=== PATIENT | female | born 1950 | race Caucasian/White ===

== ENCOUNTER 2019-06-13 06:41 | Inpatient (IN) ==
--- NOTE | 2019-05-23 16:19 | PAT Medication Instructions ---
Medication Instructions Date of Service May 23, 2019 Home Medications Cbd Oil 3 - 4 drp PO DAILY PRN aspirin [Aspirin Low Dose] 81 mg PO QPM atorvastatin 20 mg PO PM azelastine-fluticasone [Dymista] 1 spray INTRANASAL Q12H PRN calcium carb and citrate-vitD3 [Citracal + D Slow Release] 1 tab PO QAM celecoxib 200 mg PO QAM cholecalciferol (vitamin D3) [Vitamin D3] 1,000 - 2,000 unit PO QPM cholecalciferol (vitamin D3) [Vitamin D3] 5,000 unit PO QAM cyanocobalamin (vitamin B-12) [Vitamin B-12] 500 mcg PO QAM docusate sodium 100 mg PO DAILY PRN fluocinonide 1 applic TOPICAL DAILY PRN fluticasone furoate-vilanterol [Breo Ellipta] 1 inh INHALATION DAILY lamotrigine 25 mg PO QPM magnesium 250 mg PO QPM montelukast 10 mg PO PM omeprazole 20 mg PO QAM ranitidine HCl 300 mg PO QPM valacyclovir [Valtrex] 1,000 mg PO Q12H PRN ASK your surgeon for instructions celecoxib 200 mg PO QAM STOP taking 24 hours before surgery fluocinonide 1 applic TOPICAL DAILY PRN DO NOT take the morning of surgery calcium carb and citrate-vitD3 [Citracal + D Slow Release] 1 tab PO QAM cholecalciferol (vitamin D3) [Vitamin D3] 5,000 unit PO QAM cyanocobalamin (vitamin B-12) [Vitamin B-12] 500 mcg PO QAM docusate sodium 100 mg PO DAILY PRN Take morning of surgery With a small sip of water, OTHERWISE NOTHING TO EAT OR DRINK AFTER MIDNIGHT: azelastine-fluticasone [Dymista] 1 spray INTRANASAL Q12H PRN (if needed) fluticasone furoate-vilanterol [Breo Ellipta] 1 inh INHALATION DAILY omeprazole 20 mg PO QAM valacyclovir [Valtrex] 1,000 mg PO Q12H PRN (if needed) Take evening before surgery Cbd Oil 3 - 4 drp PO DAILY PRN (if needed) aspirin [Aspirin Low Dose] 81 mg PO QPM atorvastatin 20 mg PO PM azelastine-fluticasone [Dymista] 1 spray INTRANASAL Q12H PRN (if needed) cholecalciferol (vitamin D3) [Vitamin D3] 1,000 - 2,000 unit PO QPM docusate sodium 100 mg PO DAILY PRN (if needed) lamotrigine 25 mg PO QPM magnesium 250 mg PO QPM montelukast 10 mg PO PM ranitidine HCl 300 mg PO QPM valacyclovir [Valtrex] 1,000 mg PO Q12H PRN (if needed) Other Notes If you have any questions please call us at [phone] or [phone] or [phone] or [phone]
--- NOTE | 2019-05-24 11:57 | Anesthesiology Consultation ---
Date of Service May 24, 2019 Assessment & Plan (1) Encounter for pre-operative examination: - Awaiting review preop testing (labs, EKG). - Awaiting surgeon-ordered PCP clearance scheduled 06/06 (Dr. Martin). - Awaiting most recent cardiac testing if available (i.e. ECHO, stress test). Chart Review Chart Review: Patient seen in Pre Admission Testing Teaching & Discussion Pre-Anesthesia Teaching/Discussion Notes: Instructed NPO after midnight before surgery,except medications with 15 cc of water. Medication instructions provided according to the PAT guidelines. History Surgery Operation Date: 06/13/19 13:20 Proposed Procedures p Left Total Hip Arthroplasty - Malick Peterson, Height/Weight Height: 5 ft 3 in Weight: 78.8 kg Allergies Allergy/AdvReac Type Severity Reaction Status Date / Time Penicillins Allergy Intermediate hives Verified 05/17/19 10:16 Medications Home Medications Medication Instructions Recorded Confirmed Last Taken Cbd Oil 3 - 4 drp PO DAILY PRN 05/17/19 Unknown aspirin [Aspirin Low Dose] 81 mg PO QPM 05/17/19 05/17/19 Unknown atorvastatin 20 mg PO PM 05/17/19 05/17/19 Unknown azelastine-fluticasone [Dymista] 1 spray INTRANASAL Q12H PRN 05/17/19 05/17/19 Unknown calcium carb and citrate-vitD3 1 tab PO QAM 05/17/19 05/17/19 Unknown [Citracal + D Slow Release] celecoxib 200 mg PO QAM 05/17/19 05/17/19 Unknown cholecalciferol (vitamin D3) 1,000 - 2,000 unit PO QPM 05/17/19 05/17/19 Unknown [Vitamin D3] cholecalciferol (vitamin D3) 5,000 unit PO QAM 05/17/19 05/17/19 Unknown [Vitamin D3] cyanocobalamin (vitamin B-12) 500 mcg PO QAM 05/17/19 05/17/19 Unknown [Vitamin B-12] docusate sodium 100 mg PO DAILY PRN 05/17/19 05/17/19 Unknown fluocinonide 1 applic TOPICAL DAILY PRN 05/17/19 05/17/19 Unknown fluticasone furoate-vilanterol 1 inh INHALATION DAILY 05/17/19 05/17/19 Unknown [Breo Ellipta] lamotrigine 25 mg PO QPM 05/17/19 05/17/19 Unknown magnesium 250 mg PO QPM 05/17/19 05/17/19 Unknown montelukast 10 mg PO PM 05/17/19 05/17/19 Unknown omeprazole 20 mg PO QAM 05/17/19 05/17/19 Unknown ranitidine HCl 300 mg PO QPM 05/17/19 05/17/19 Unknown valacyclovir [Valtrex] 1,000 mg PO Q12H PRN 05/17/19 05/17/19 Unknown Past Medical History Medical History Asthma stable High cholesterol Hx of cancer of lung s/p LL lobectomy, chemo (2016) Hx of skin cancer, basal cell facial Osteoarthritis Psoriasis Psoriatic arthritis Sleep apnea CPAP Exercise / Class Metabolic Activity III < 4 Walking/Shop/Light housework (uses cane PRN) Past Surgical History Surgical History History of back surgery History of esophagogastroduodenoscopy (EGD) History of lobectomy of lung LEFT LOWER LOBE History of total right hip replacement Hx of blepharoplasty Hx of colonoscopy Hx of foot surgery LEFT AND RIGHT BUNIONS Hx of hand surgery FINGER Hx of total hysterectomy Past Anesthesia History No Hx of Anesthesia Complications and No Family Hx of Anesthesia Complications History of PONV No Hx of PONV and Hx of Motion Sickness (remote hx) Social History Smoking Status: Never smoker Do You Dip or Chew Tobacco: No Hx Alcohol Use: Yes Alcohol type: beer alcohol intake frequency: holidays/special occasions only Hx Substance Use: Yes Substance Use Type Other:: CBD OIL - DAILY BASIS Review of Systems Patient denies chest pain, shortness of breath, cough, wheezing, palpitations. Physical Exam Vital Signs VITALS BP 142/79 P 65 TEMP 97.7 SP02 99%RA RESP 16 PHYSICAL Full neck and c-spine range of motion. Full TMJ range of motion. TMD 3 finger breaths Mallampati Score 2 Dentition: wisdom tooth cap "broken" (plan for dental work 05/30)- surgeon aware Lungs: clear throughout to auscultation Cardiac: regular rate and rhythm, no murmurs noted Spine: normal Carotid arteries: negative bruit Extremities: no edema
[2019-05-24 15:41] LABS: Basophils # (auto) 0.03 K/uL (0-0.2); Basophils % (auto) 0.4 %; Eosinophils # (auto) 0.09 K/uL (0-0.5); Eosinophils % (auto) 1.2 %; Hematocrit (blood only) 38.8 % (37-47); Hemoglobin 12.9 g/dL (12.0-16.0); Immature Granulocytes # (auto) 0.01 K/uL (0.00-0.02); Immature Granulocytes % (auto) 0.1 %; Lymphocytes # (auto) 2.15 K/uL (1.2-3.4); Lymphocytes % (auto) 29.1 %; Mean Corpuscular Hemoglobin 31.6 pg (25-34); Mean Corpuscular Hgb Conc 33.2 g/dL (32-36); Mean Corpuscular Volume 95.1 fL (80-100); Mean Platelet Volume 9.5 fL (7.4-10.4); Monocytes # (auto) 0.44 K/uL (0.11-0.59); Neutrophils # (auto) 4.66 K/uL (1.4-6.5); Neutrophils % (auto) 63.2 %; Platelet Count 331 K/uL (130-400); RDW Coefficient of Variation 12.7 % (11.5-14.5); RDW Standard Deviation 44.1 fL (36.4-46.3); Red Blood Count 4.08 M/uL (4.2-5.4); White Blood Count 7.38 K/uL (4.8-10.8)
[2019-05-24 15:46] LABS: Appearance Urine Clear (Clear); Bilirubin Urine Negative (Negative); Blood Urine Negative (Negative); Color Urine Yellow; Glucose Urine UA Negative (Negative); Ketones Urine Negative (Negative); Leukocyte Esterase Urine Negative (Negative); Nitrite Urine Negative (Negative); Protein Urine Negative (Negative); Specific Gravity Urine 1.016 (1.000-1.030); Urobilinogen Urine Negative (Negative); pH Urine 7.5 (4.5-7.5)
[2019-05-24 15:52] LABS: Albumin Level 3.7 gm/dl (3.4-5.0); BUN Creatinine Ratio 14.6 (10-20); Creatinine Clr Calc Pharmacy 69.4 ml/min; Est GFR (African American) 93.6; Est GFR (Non-African American) 80.8; Potassium 3.8 mmol/L (3.5-5.1)
[2019-05-24 15:55] LABS: Partial Thromboplastin Time 27.3 Seconds (21.0-31.0); Prothrombin Time 9.8 Seconds (9.0-12.0)
[2019-05-25 05:51] LABS: Estimated Average Glucose 120 mg/dl; Hemoglobin A1C 5.8 % (4.5-5.6)
--- NOTE | 2019-06-12 11:14 | History & Physical Report ---
Date of Service June 12, 2019 Assessment & Plan (1) Degenerative joint disease of left hip: I have indicated the patient for left total hip replacement. The risks, benefits and complications of surgery were explained to the patient which include but not limited to infection, acute blood loss, DVT/PE, injury to nerves, vessels, bone, soft tissue, arthrofibrosis, chronic pain, failure of the prosthesis, hip dislocation, leg length discrepancy, need for additional surgery, cardiac and pulmonary events and . The patient wished to proceed with surgery and informed consent was obtained at this time. We will plan for ASA BID post-operatively for DVT prophylaxis. Upon discharge the patient will be discharged home with home health services. Appropriate clearances by PCP, cardio, pulm and onc were obtained. History of Present Illness Chief Complaint: Left hip pain/djd Primary Care Provider: Jaguar Martin The patient is a 68 year old female who presents with complaints of severe left hip pain and DJD. The patient has failed outpatient conservative treatments to this point which included NSAIDs, IA corticosteroid injection, PT, home exercise/walking program. The patient's pain and limited function have progressed to the point where they severely hinder their activities of daily living and they no longer tolerate exercise programs. They are requesting to proceed with total hip replacement surgery. Allergies Allergy/AdvReac Type Severity Reaction Status Date / Time Penicillins Allergy Intermediate hives Verified 06/13/19 07:16 Home Medications Home Medications Medication Instructions Recorded Confirmed Type Cbd Oil 3 - 4 drp PO DAILY PRN 05/17/19 History aspirin [Aspirin Low Dose] 81 mg PO QPM 05/17/19 05/17/19 History atorvastatin 20 mg PO PM 05/17/19 05/17/19 History azelastine-fluticasone [Dymista] 1 spray INTRANASAL Q12H PRN 05/17/19 05/17/19 History calcium carb and citrate-vitD3 1 tab PO QAM 05/17/19 05/17/19 History [Citracal + D Slow Release] celecoxib 200 mg PO QAM 05/17/19 05/17/19 History cholecalciferol (vitamin D3) 1,000 - 2,000 unit PO QPM 05/17/19 05/17/19 History [Vitamin D3] cholecalciferol (vitamin D3) 5,000 unit PO QAM 05/17/19 05/17/19 History [Vitamin D3] cyanocobalamin (vitamin B-12) 500 mcg PO QAM 05/17/19 05/17/19 History [Vitamin B-12] docusate sodium 100 mg PO DAILY PRN 05/17/19 05/17/19 History fluocinonide 1 applic TOPICAL DAILY PRN 05/17/19 05/17/19 History fluticasone furoate-vilanterol 1 inh INHALATION DAILY 05/17/19 05/17/19 History [Breo Ellipta] lamotrigine 25 mg PO QPM 05/17/19 05/17/19 History magnesium 250 mg PO QPM 05/17/19 05/17/19 History montelukast 10 mg PO PM 05/17/19 05/17/19 History omeprazole 20 mg PO QAM 05/17/19 05/17/19 History ranitidine HCl 300 mg PO QPM 05/17/19 05/17/19 History valacyclovir [Valtrex] 1,000 mg PO Q12H PRN 05/17/19 05/17/19 History Past Med/Surg History Medical History Asthma stable High cholesterol Hx of cancer of lung s/p LL lobectomy, chemo (2017) Hx of skin cancer, basal cell facial Osteoarthritis Psoriasis Psoriatic arthritis Sleep apnea CPAP Surgical History History of back surgery History of esophagogastroduodenoscopy (EGD) History of lobectomy of lung LEFT LOWER LOBE History of total right hip replacement Hx of blepharoplasty Hx of colonoscopy Hx of foot surgery LEFT AND RIGHT BUNIONS Hx of hand surgery FINGER Hx of total hysterectomy Social History Preferred Language: Divehi Communication Ability: Effective Beliefs That Will Affect Care: None Current Living Situation: Spouse Feels Safe at Home: Yes Safety Concerns: Feels Safe At This Time Smoking Status: Never smoker Do You Dip or Chew Tobacco: No ; Second Hand Exposure: No ; Hx Alcohol Use: Yes Alcohol type: beer Hx Substance Use: Yes Substance Use Type Other:: CBD OIL - DAILY BASIS Review of Systems Review of Systems: All systems reviewed & are unremarkable except as noted in HPI & below Constitutional: as per Subjective / HPI Physical Exam Physical Exam: LLE NVSI +EHL/FHL/TA/GS SILT grossly, +2 DP pulse, compartments soft NT,limited painful ROM of the hip, antalgic gait. Constitutional: WD/WN, vitals as above Eyes: PERRL, conjunctivae normal, anicteric sclerae ENMT: external ear and nose normal, oropharynx normal Neck: trachea midline, no thyromegaly Respiratory: normal respiratory effort, lungs clear to auscultation Cardiovascular: RRR, no murmur, no edema Gastrointestinal (Abdomen): normal bowel sounds, soft, nontender, no hepatosplenomegaly Musculoskeletal: no cyanosis or clubbing, extremities motor strength 5/5 Skin: no rashes, warm and dry Neurologic: patellar DTR's 2+ bilat, sensation intact Psychiatric: A+Ox3, euthymic affect Lymphatic: no cervical or axillary lymphadenopathy Results & Data Diagnostic Findings Multiple views of the hip demonstrates severe DJD with complete loss of the joint space. +osteophytes, +sclerosis, +subchondral cysts.
[~2019-06-13 06:41] MED LIST: ACETAMINOPHEN 500 MG TAB PO SCH; BUPIVACAINE 0.5 % 5 MG/1 ML PF 10ML VIAL ONE; CLINDAMYCIN 600 MG/54 ML BAG IV SCH; CeleBREX 200 MG CAP PO SCH; FAMOTIDINE 20 MG TAB PO SCH; LR 500ML BOLUS, THEN 15ML/HR IV SCH; METOCLOPRAMIDE HCL 10 MG TABLET PO SCH; ROPIVACAINE 0.5% HCL/PF 150 MG, BUPIVACAINE 0.5% MPF 30 ML, EPINEPHrine 30MG/30ML (OR U... INSTIL SCH; TRANEXAMIC ACID 1,000 MG **IV Intra-op IV SCH; TRANEXAMIC ACID 1,000 MG **IV Pre-op IV SCH; TRANEXAMIC ACID 1,000 MG x 1 **For Topical Use TOP SCH; dexAMETHasone 4 MG TAB PO SCH
[2019-06-13] MEDS ORDERED: fentaNYL citrate 100 MCG/2 ML VIAL ONE (07:09)
[2019-06-13] MEDS ORDERED: MIDAZOLAM HCL 1 MG/ML 2ML VIAL ONE (07:09)
[2019-06-13] MEDS ORDERED: ORTHO JOINT ANESTHETIC ONE (07:11)
[2019-06-13] MEDS ORDERED: BACITRACIN INJ 50,000 UNIT VIAL ONE (07:11)
--- NOTE | 2019-06-13 07:20 | History & Physical Bridge Note ---
Date of Service June 13, 2019 History & Physical Bridge Note I have examined the patient, reviewed the History & Physical and in the interval since the performance of the History & Physical I have noted the following changes of clinical significance: no changes noted
[2019-06-13] MEDS ORDERED: LIDOCAINE HCL 2% 2 ML VIAL/AMP(20MG/ML) INFIL ONE (07:22)
[2019-06-13] MEDS ORDERED: PROPOFOL IV EMULSION 10 MG/ML 20 ML VIAL IV ONE ×2 (07:22→10:02)
[2019-06-13] MEDS ORDERED: ePHEDrine sulfate 50 MG/ML SYR ONE (07:22)
[2019-06-13] MEDS ORDERED: PHENYLEPHRINE 100MCG/ML 5ML SYR ONE (07:22)
[2019-06-13] MEDS ORDERED: ePHEDrine sulfate 50 MG/ML AMP IV PRN (08:48)
[2019-06-13] MEDS ORDERED: KETOROLAC TROMETHAMINE 15 MG/ML VIAL IV PRN (08:48)
[2019-06-13] MEDS ORDERED: HYDROmorphone INJ 1 MG/ML SYRINGE IV PRN (08:48)
[2019-06-13] MEDS ORDERED: ATROPINE SULFATE 0.1 MG/ML 10ML SYR IV PRN (08:48)
[2019-06-13] MEDS ORDERED: PHENYLEPHRINE 100MCG/ML 5ML SYR IV PRN (08:48)
[2019-06-13] MEDS ORDERED: ONDANSETRON INJ 2 MG/ML 2 ML VIAL IV PRN ×2 (08:48→12:16)
--- NOTE | 2019-06-13 10:50 | Post Operative Brief Note ---
Immediate Post Op Note v1 Date of Surgery June 13, 2019 Pre & Post Diagnosis Operation Date: 06/13/19 09:20 Pre-Op Diagnosis: Unilateral Primary Osteoarthritis, Left Hip Post-Op Diagnosis: Unilateral Primary Osteoarthritis, Left Hip I identified the patient and participated in the time-out.: Yes Procedure Operation Date: 06/13/19 09:20 Actual Procedures p Left Total Hip Arthroplasty, uncemented(Left) - Malick Peterson DO Surgeon Malick Peterson DO Eeo Officer Venkat New Estimated Blood Loss 150 Findings Consistent with Post-Op Diagnosis Fluids 1500 cc LR Specimens femoral head Anesthesia Type Spinal MAC Complications none Disposition Disposition: Recovery Room Overlapping Procedure I was present for: the critical portions of procedure. I was immediately available: during the entire case. Back up surgeon: was not required during procedure.
--- NOTE | 2019-06-13 11:10 | Operative Report ---
Post Operative Report Pre & Post Diagnosis Operation Date: 06/13/19 09:20 Pre-Op Diagnosis: Unilateral Primary Osteoarthritis, Left Hip Post-Op Diagnosis: Unilateral Primary Osteoarthritis, Left Hip I identified the patient and participated in the time-out.: Yes Procedure Operation Date: 06/13/19 09:20 Actual Procedures p Left Total Hip Arthroplasty, uncemented(Left) - Malick Peterson DO Surgeon Malick Peterson DO Plant Assigner Venkat New Estimated Blood Loss 150 Findings Consistent with Post-Op Diagnosis Fluids 1500 cc LR Specimens Femoral head Anesthesia Type Spinal MAC Complications none Disposition Disposition: Recovery Room Indications The patient is a 68-year-old female who presents with severe progressive left hip DJD who has failed outpatient conservative treatments. I indicated the patient for a total hip replacement and the risks and benefits were explained in detail which included but not limited to infection, bleeding, blood clot, damage to surrounding bone, nerves, vessels, soft tissue, hip dislocation, failure of the prosthesis, leg length discrepancy, need for additional surgery and . The patient agreed to proceed with replacement of the hip and informed consent was obtained. Appropriate clearances were obtained. Description of Procedure COMPONENTS USED: [employer] hip system: Acetabulum size 52, femur size 9 extended offset, femoral head 36+0, liner 5236, acetabular screw 35 mm x 1. Following induction of adequate spinal anesthesia, the patient was transferred to the OR table and placed in lateral decubitus position with right hip down. The left hip was prepped and draped in the typical sterile fashion. A timeout was performed, patient identified and site britni confirmed. Appropriate antibiotics were given. A standard posterolateral/Alyssa-Langenbeck incision was made. Subcutaneous tissue was sharply dissected. Electrocautery was utilized for hemostasis. The fascia was incised throughout the length of the wound and retracted with the Charnley retractor. The bursa was taken down and the short external rotators were identified. The piriformis was tagged with #1 Vicryl. The short external rotators and capsule were divided from the posterior aspect of the femur using electrocautery. The posterior capsule was tagged with #1 Vicryl. Both external rotators and posterior capsule were swept posterior and protected, along with protecting the sciatic nerve. The hip was dislocated by flexion and internally rotation in a controlled manner and exposure of the femoral neck was gained with an old-style Hohmann and a blunt cobra retractor. A femoral cutting guide was utilized for making the appropriate level femoral neck cut with reciprocating saw. The femoral head was removed, measured and reserved on the back table. Next, attention was turned to the acetabulum. A posterior and anterior offset retractor was placed to gain adequate exposure. Acetabular labrum as well as posterior capsule elements were removed using electrocautery and forceps. Fovea centralis was cleared of all soft tissue. Sequential reaming was performed starting at 44 mm and carried up to a 51 mm and decision was made to proceed with impaction of a 52 mm G7 osteo-ti cup. This was impacted and held using a single 35 mm bone screw. The trial acetabular liner was placed at this time. Next, attention was turned to the proximal femur where a Bovie and pickup was used to further clear short external rotators from their insertion on the femur. Box osteotome and canal finder was used to gain access to the femoral canal and the lateral reamer on power was used to further open the proximal lateral canal. Sequentially rasping was carried up to a 9 which gave good fit and fill of the proximal femur. A trial reduction was carried out with a extended offset femoral neck component a 36+0 mm femoral head. The trial reduction was stable in all degrees of rotation with no erkh-hh-axla impingement. The hip was dislocated, trial components were removed and access to the acetabulum was re-established. The trial liner was removed and the cup was irrigated to ensure all debris was removed. The final acetabular liner was inserted and properly seated in the cup. Access to the femur was once more gained and the size 9 femoral stem with extended offset was impacted into position. The hip was once more assessed with the 36+0 mm femoral head. Stability was accessed and found to be excellent with equal leg lengths. The hip was dislocated for the last time and the final 36+0 ceramic femoral head was impacted in place and the hip was reduced. Range of motion was checked once again and found to be stable. A Betadine soak was performed. After 3 minut es, the hip was once more irrigated with copious sterile saline solution with bacitracin. The mario-incisional soft tissue was injected utilizing [place] ortho mix which includes a combination of Ropivicaine 0.5% 150mg, Bupivicaine 0.5%/Epinephrine 1:200,000 30ml, Toradol 30mg, Dexamethasone 4mg, Ketamine 10mg, Clonidine 100mcg and NSS 30ml Orthomix solution. The piriformis, external rotators and capsule were repaired to the greater trochanter through bone tunnels using #5 FiberWire. The fascia was closed using #1 Vicryl, subcutaneous tissue was closed using 2-0 Vicryl, and skin was closed with 3-0 V-lock suture and Dermabond Prineo. Sterile dressings were applied which included joseph, 4x4s and tegaderm adhesive dressing. The patient tolerated the procedure well and was transported to PACU in stable condition. Due to the complex nature of the procedure, the entire surgery was performed with the operational assistance of Venkat New PA-C. The vet assistant, under direct supervision, was involved in the actual performance of all aspects of the surgical procedure including patient positioning, hemostasis, tissue retraction, instrument management and wound closure. I attest to the content of the Intraoperative Record and any orders documented therein. Any exceptions are noted below.
--- NOTE | 2019-06-13 11:49 | XRay Report ---
XR hip 1V LT w pelvis CLINICAL HISTORY: IN PACU - A/P PELVIS and LATERAL HIP COMPARISON: None. DISCUSSION: Anatomic alignment posttotal left hip arthroplasty. Pre-existing total right hip arthropl asty. Expected postoperative soft tissue change. IMPRESSION: Anatomic alignment posttotal left hip arthroplasty. The above report was generated using voice recognition software. It may contain grammatical, syntax or spelling errors. Electronically signed by: Man Hernandes M.D. 06/13/2019 11:48 AM
[2019-06-13] MEDS ORDERED: HYDROmorphone INJ 0.5 MG/0.5 ML SYR IV PRN (12:16)
[2019-06-13] MEDS ORDERED: METOCLOPRAMIDE HCL INJ 5 MG/ML 2 ML VIAL IV PRN (12:16)
[2019-06-13] MEDS ORDERED: TRAMADOL HCL 50 MG TABLET PO PRN (12:16)
[2019-06-13] MEDS ORDERED: NALOXONE HCL 0.4 MG/1 ML VIAL/CARP IV PRN (12:16)
[2019-06-13] MEDS ORDERED: bisacodyL 10 MG SUPP PR PRN (12:16)
[2019-06-13] MEDS ORDERED: NON-FORMULARY MEDICATION (Fluocinonide 1 APPLN) TOP PRN (12:16)
[2019-06-13] MEDS ORDERED: MAGNESIUM HYDROXIDE SUSP 30 ML UDC PO PRN (12:16)
--- NOTE | 2019-06-13 13:05 | Anesthesiology Progress Note ---
Date of Service June 13, 2019 Anesthesia Post Procedure Vital Signs Vital Signs: Temp Pulse Pulse Resp BP Pulse Ox 06/13/19 12:15 34.8 C L 85 15 126/77 96 06/13/19 11:55 36.3 C L 78 15 135/74 98 06/13/19 11:45 82 17 123/65 100 06/13/19 11:35 36.2 C L 74 12 138/61 100 06/13/19 11:25 36.2 C L 82 10 L 135/68 100 06/13/19 11:19 36.2 C L 88 14 118/69 99 06/13/19 07:40 36.8 C 69 20 145/74 H 97 Pain Intensity Left Hip: Pain Intensity: 5 Transfer of Care Handoff Completed per policy Notes Mental Status: alert / awake / arousable Patient Amnestic to Procedure: Yes Nausea / Vomiting: adequately controlled Pain: adequately controlled Airway Patency, RR, SpO2: stable & adequate BP & HR: stable & adequate Hydration State: stable & adequate Anesthetic Complications: no major complications apparent
[2019-06-13] MEDS: SODIUM CHLORIDE 0.9% 1000ML 1,000 ML IV SCH (14:08)
[2019-06-13] MEDS: KETOROLAC TROMETHAMINE 15 MG/ML VIAL IV SCH ×2 (14:13→20:18)
--- NOTE | 2019-06-13 15:33 | Orthopedic Progress Note ---
Date of Service June 13, 2019 Assessment & Plan (1) Degenerative joint disease of left hip: Status post left total hip arthroplasty -Clinda x24 -DVT prophylaxis: SCDs, teds, ASA twice daily -Posterior hip precautions -PT/OT -Postoperative x-ray demonstrate a well aligned well fixed orthopedic prosthesis without evidence of fracture or dislocation. -A.m. lab -DC planning Subjective Post Operative Progress Note Patient seen sitting up in bed, comfortable, denies complaints, pain well controlled, no acute issues. Review of Systems Review of Systems: All systems reviewed & are unremarkable except as noted in HPI & below Constitutional: as per Subjective / HPI Physical Exam Physical Exam: LLE NVSI +EHL/FHL/TA/GS SILT grossly, +2 DP pulse, compartments soft NT, dressing cdi. Abduction pillow in place. Constitutional: WD/WN, vitals as above Results & Data Vital Signs (Past 12 Hours) Vital Signs Temp Pulse Pulse Resp BP Pulse Ox 06/13/19 15:15 36.3 C L 99 H 101/64 100 06/13/19 14:17 34.8 C L 94 H 104/65 100 06/13/19 13:18 100/65 06/13/19 13:13 36.3 C L 90 66/46 L 98 06/13/19 12:45 34.8 C L 96 H 116/72 99 06/13/19 12:15 34.8 C L 85 15 126/77 96 06/13/19 11:55 36.3 C L 78 15 135/74 98 06/13/19 11:45 82 17 123/65 100 06/13/19 11:35 36.2 C L 74 12 138/61 100 06/13/19 11:25 36.2 C L 82 10 L 135/68 100 06/13/19 11:19 36.2 C L 88 14 118/69 99 06/13/19 07:40 36.8 C 69 20 145/74 H 97
[2019-06-13] MEDS: CLINDAMYCIN 600 MG in DEXTROSE 5% 50 ML IV SCH (17:32)
[2019-06-13] MEDS: FLUTICASONE/SALMETEROL 100/50 (ADVAIR) 14 PUFF/1 INHALER INH SCH (20:19)
[2019-06-13] MEDS: lamoTRIgine 25 MG TAB PO SCH (20:19)
[2019-06-13] MEDS: ATORVASTATIN 20 MG TAB PO SCH (20:19)
[2019-06-13] MEDS: MONTELUKAST SODIUM 10 MG TABLET PO SCH (20:20)
[2019-06-13] MEDS: SENNA 8.6 MG TAB PO SCH (20:21)
[2019-06-13] MEDS: DOCUSATE SODIUM 100 MG CAP PO SCH (20:47)
[2019-06-13] MEDS: FAMOTIDINE 20 MG TAB PO SCH (20:47)
[2019-06-13] MEDS ORDERED: CeleBREX 200 MG CAP PO SCH (21:00)
[2019-06-14] MEDS: SODIUM CHLORIDE 0.9% 1000ML 1,000 ML IV SCH (00:28)
[2019-06-14] MEDS: KETOROLAC TROMETHAMINE 15 MG/ML VIAL IV SCH ×2 (00:33→08:45)
[2019-06-14] MEDS: CLINDAMYCIN 600 MG in DEXTROSE 5% 50 ML IV SCH (00:34)
[2019-06-14 05:45] LABS: Basophils # (auto) 0.01 K/uL (0-0.2); Basophils % (auto) 0.1 %; Eosinophils # (auto) 0.01 K/uL (0-0.5); Eosinophils % (auto) 0.1 %; Hematocrit (blood only) 21.9 % (37-47); Hemoglobin 7.8 g/dL (12.0-16.0); Immature Granulocytes # (auto) 0.04 K/uL (0.00-0.02); Immature Granulocytes % (auto) 0.3 %; Lymphocytes # (auto) 1.53 K/uL (1.2-3.4); Lymphocytes % (auto) 11.8 %; Mean Corpuscular Hemoglobin 32.2 pg (25-34); Mean Corpuscular Hgb Conc 35.6 g/dL (32-36); Mean Corpuscular Volume 90.5 fL (80-100); Mean Platelet Volume 8.4 fL (7.4-10.4); Monocytes # (auto) 0.99 K/uL (0.11-0.59); Monocytes % (auto) 7.6 %; Neutrophils # (auto) 10.37 K/uL (1.4-6.5); Neutrophils % (auto) 80.1 %; Platelet Count 234 K/uL (130-400); RDW Coefficient of Variation 12.6 % (11.5-14.5); RDW Standard Deviation 41.5 fL (36.4-46.3); Red Blood Count 2.42 M/uL (4.2-5.4); White Blood Count 12.95 K/uL (4.8-10.8)
[2019-06-14 06:06] LABS: RBC Morphology Unremarkable
[2019-06-14 06:14] LABS: BUN Creatinine Ratio 31.2 (10-20); Calcium 7.6 mg/dl (8.5-10.1); Creatinine Clr Calc Pharmacy 83.9 ml/min; Est GFR (African American) 105.9; Est GFR (Non-African American) 91.4
[2019-06-14] MEDS: FLUTICASONE/SALMETEROL 100/50 (ADVAIR) 14 PUFF/1 INHALER INH SCH ×2 (08:38→20:56)
[2019-06-14] MEDS: CeleBREX 200 MG CAP PO SCH ×2 (08:39→20:56)
[2019-06-14] MEDS: MULTIVITAMIN TAB PO SCH (08:39)
[2019-06-14] MEDS: ASPIRIN 325 MG ECTAB PO SCH ×2 (08:39→20:57)
[2019-06-14] MEDS: PANTOprazole 40 MG TAB PO SCH (08:40)
[2019-06-14] MEDS: DOCUSATE SODIUM 100 MG CAP PO SCH ×2 (08:45→21:00)
[2019-06-14] MEDS ORDERED: SODIUM CHLORIDE 0.9% 250 ML IV PRN ×2 (08:51→09:37)
--- NOTE | 2019-06-14 10:50 | Orthopedic Progress Note ---
Date of Service June 14, 2019 Assessment & Plan (1) Degenerative joint disease of left hip: Status post left total hip arthroplasty POD#1 -Clinda x24 -DVT prophylaxis: SCDs, teds, ASA twice daily -Posterior hip precautions -PT/OT -Postoperative x-ray demonstrate a well aligned well fixed orthopedic prosthesis without evidence of fracture or dislocation. -A.m. lab - hgb 7.8, acute post op anemia likely secondary to mario-operative acute blood loss and dilutional effect. Will transfuse 2 units PRBC. Monitor daily labs. -DC planning Subjective Post Operative Progress Note Patient seen sitting up in bed, comfortable, denies complaints, pain well controlled, no acute issues. Denies F/C/N/V/SOP/CP. Review of Systems Review of Systems: All systems reviewed & are unremarkable except as noted in HPI & below Constitutional: as per Subjective / HPI Physical Exam Physical Exam: LLE NVSI +EHL/FHL/TA/GS SILT grossly, +2 DP pulse, compartments soft NT, dressing cdi. Constitutional: WD/WN, vitals as above Results & Data Vital Signs (Past 12 Hours) Vital Signs Temp Pulse Pulse Resp BP BP Pulse Ox 06/14/19 10:35 37.1 C 90 16 99/55 L 98 06/14/19 10:19 36.9 C 102 H 18 105/53 L 06/14/19 07:31 36.7 C 74 16 115/66 99 06/14/19 06:27 112/61 06/14/19 06:26 102/71 06/14/19 06:16 103/61 06/14/19 03:30 36.9 C 76 14 97/56 L 97 06/13/19 23:40 36.9 C 82 14 102/57 L 96 Laboratory Results 06/14/19 06/14/19 06/14/19 Range/Units 05:20 05:20 05:20 WBC 12.95 H (4.8-10.8) K/uL RBC 2.42 L (4.2-5.4) M/uL Hgb 7.8 L (12.0-16.0) g/dL Hct 21.9 L (37-47) % MCV 90.5 (80-100) fL MCH 32.2 (25-34) pg MCHC 35.6 (32-36) g/dL RDW Std Deviation 41.5 (36.4-46.3) fL RDW Coeff of Asya 12.6 (11.5-14.5) % Plt Count 234 (130-400) K/uL MPV 8.4 (7.4-10.4) fL Immature Gran % (Auto) 0.3 % Neut % (Auto) 80.1 % Lymph % (Auto) 11.8 % [place] % (Auto) 7.6 % Eos % (Auto) 0.1 % Baso % (Auto) 0.1 % Immature Gran # (Auto) 0.04 H (0.00-0.02) K/uL Neut # (Auto) 10.37 H (1.4-6.5) K/uL Lymph # (Auto) 1.53 (1.2-3.4) K/uL [place] # (Auto) 0.99 H (0.11-0.59) K/uL Eos # (Auto) 0.01 (0-0.5) K/uL Baso # (Auto) 0.01 (0-0.2) K/uL RBC Morphology Unremarkable Sodium 138 (136-145) mmol/L Potassium 4.0 (3.5-5.1) mmol/L Chloride 107 (98-107) mmol/L Carbon Dioxide 26 (21-32) mmol/L Anion Gap 5.0 (3-11) BUN 19 H (7-18) mg/dl Creatinine 0.62 (0.6-1.2) mg/dl Est Cr Clr Drug Dosing 83.9 ml/min Est GFR ( Amer) 105.9 Est GFR (Non-Af Amer) 91.4 BUN/Creatinine Ratio 31.2 H (10-20) Glucose 114 H (70-99) mg/dl Calcium 7.6 L (8.5-10.1) mg/dl Hepatitis C Ab Screen Neg (Neg) Blood Type Antibody Screen Crossmatch 06/13/19 Range/Units 07:11 WBC (4.8-10.8) K/uL RBC (4.2-5.4) M/uL Hgb (12.0-16.0) g/dL Hct (37-47) % MCV (80-100) fL MCH (25-34) pg MCHC (32-36) g/dL RDW Std Deviation (36.4-46.3) fL RDW Coeff of Asya (11.5-14.5) % Plt Count (130-400) K/uL MPV (7.4-10.4) fL Immature Gran % (Auto) % Neut % (Auto) % Lymph % (Auto) % [place] % (Auto) % Eos % (Auto) % Baso % (Auto) % Immature Gran # (Auto) (0.00-0.02) K/uL Neut # (Auto) (1.4-6.5) K/uL Lymph # (Auto) (1.2-3.4) K/uL [place] # (Auto) (0.11-0.59) K/uL Eos # (Auto) (0-0.5) K/uL Baso # (Auto) (0-0.2) K/uL RBC Morphology Sodium (136-145) mmol/L Potassium (3.5-5.1) mmol/L Chloride (98-107) mmol/L Carbon Dioxide (21-32) mmol/L Anion Gap (3-11) BUN (7-18) mg/dl Creatinine (0.6-1.2) mg/dl Est Cr Clr Drug Dosing ml/min Est GFR ( Amer) Est GFR (Non-Af Amer) BUN/Creatinine Ratio (10-20) Glucose (70-99) mg/dl Calcium (8.5-10.1) mg/dl Hepatitis C Ab Screen (Neg) Blood Type O Positive Antibody Screen NEGATIVE Crossmatch See Detail
[2019-06-14] MEDS: MONTELUKAST SODIUM 10 MG TABLET PO SCH (20:57)
[2019-06-14] MEDS: SENNA 8.6 MG TAB PO SCH (20:57)
[2019-06-14] MEDS: lamoTRIgine 25 MG TAB PO SCH (20:58)
[2019-06-14] MEDS: ATORVASTATIN 20 MG TAB PO SCH (20:58)
[2019-06-14] MEDS: FAMOTIDINE 20 MG TAB PO SCH (21:49)
[2019-06-14] MEDS ORDERED: ACETAMINOPHEN 500 MG TAB PO PRN (23:04)
[2019-06-15 05:29] LABS: Basophils # (auto) 0.02 K/uL (0-0.2); Basophils % (auto) 0.2 %; Hematocrit (blood only) 30.8 % (37-47); Hemoglobin 10.4 g/dL (12.0-16.0); Immature Granulocytes # (auto) 0.03 K/uL (0.00-0.02); Immature Granulocytes % (auto) 0.3 %; Lymphocytes % (auto) 32.6 %; Mean Corpuscular Hemoglobin 31.5 pg (25-34); Mean Corpuscular Hgb Conc 33.8 g/dL (32-36); Mean Corpuscular Volume 93.3 fL (80-100); Mean Platelet Volume 9.3 fL (7.4-10.4); Monocytes # (auto) 0.91 K/uL (0.11-0.59); Neutrophils # (auto) 5.77 K/uL (1.4-6.5); Neutrophils % (auto) 56.9 %; Platelet Count 216 K/uL (130-400); RDW Coefficient of Variation 13.6 % (11.5-14.5); RDW Standard Deviation 45.9 fL (36.4-46.3); White Blood Count 10.13 K/uL (4.8-10.8)
[2019-06-15 05:57] LABS: Est GFR (African American) 104.3; Potassium 3.9 mmol/L (3.5-5.1)
[2019-06-15 08:31] VITALS: BP 121/72; PULSE 69; TEMP 97.5; O2SAT 97
[2019-06-15] MEDS: CeleBREX 200 MG CAP PO SCH (08:52)
[2019-06-15] MEDS: FLUTICASONE/SALMETEROL 100/50 (ADVAIR) 14 PUFF/1 INHALER INH SCH (08:52)
[2019-06-15] MEDS: ASPIRIN 325 MG ECTAB PO SCH (08:52)
[2019-06-15] MEDS: PANTOprazole 40 MG TAB PO SCH (08:52)
[2019-06-15] MEDS: MULTIVITAMIN TAB PO SCH (08:52)
[2019-06-15] MEDS: DOCUSATE SODIUM 100 MG CAP PO SCH (08:55)
--- NOTE | 2019-06-15 12:52 | Orthopedic Progress Note ---
Date of Service June 15, 2019 Assessment & Plan (1) Degenerative joint disease of left hip: Status post left total hip arthroplasty POD#2 -Clinda x24 -DVT prophylaxis: SCDs, teds, ASA twice daily -Posterior hip precautions -PT/OT -Postoperative x-ray demonstrate a well aligned well fixed orthopedic prosthesis without evidence of fracture or dislocation. -A.m. lab - hgb 10.4, s/p 2 units PRBC on 06/14/19. -DC planning home with POD#1 -Clinda x24 -DVT prophylaxis: SCDs, teds, ASA twice daily -Posterior hip precautions -PT/OT -Postoperative x-ray demonstrate a well aligned well fixed orthopedic prosthesis without evidence of fracture or dislocation. -A.m. lab - hgb 7.8, acute post op anemia likely secondary to mario-operative acute blood loss and dilutional effect. Will transfuse 2 units PRBC. Monitor daily labs. -DC planning Subjective Post Operative Progress Note Patient seen in a.m. sitting up in bed, comfortable, denies complaints, pain well controlled, no acute issues. Denies F/C/N/V/SOP/CP. Review of Systems Review of Systems: All systems reviewed & are unremarkable except as noted in HPI & below Constitutional: as per Subjective / HPI Physical Exam Physical Exam: LLE NVSI +EHL/FHL/TA/GS SILT grossly, +2 DP pulse, compartments soft NT, dressing cdi. Constitutional: WD/WN, vitals as above Results & Data Vital Signs (Past 12 Hours) Vital Signs Temp Pulse Resp BP Pulse Ox 06/15/19 08:06 36.4 C L 69 16 121/72 97
--- NOTE | 2019-06-15 16:05 | Discharge Summary ---
Date of Service June 15, 2019 Admission HPI Per Admitting Provider The patient is a 68 year old female who presents with complaints of severe left hip pain and DJD. The patient has failed outpatient conservative treatments to this point which included NSAIDs, IA corticosteroid injection, PT, home exercise/walking program. The patient's pain and limited function have progressed to the point where they severely hinder their activities of daily living and they no longer tolerate exercise programs. They are requesting to proceed with total hip replacement surgery. Principal Diagnosis Left total hip replacement Discharge Exam LLE NVSI +EHL/FHL/TA/GS SILT grossly, +2 DP pulse, compartments soft NT, dressing cdi. Constitutional WD/WN, vitals as above Discharge Data Allergies Allergy/AdvReac Type Severity Reaction Status Date / Time Penicillins Allergy Intermediate hives Verified 06/13/19 07:16 Consultations 06/14/19 08:00 Consult Case Management - Discharge Planning Routine Procedures Performed Operation Date: 06/13/19 09:20 Actual Procedures p Left Total Hip Arthroplasty, uncemented(Left) - Malick Peterson DO Hospital Course (1) Degenerative joint disease of left hip: The patient is a 68-year-old female who presents with long standing history of severe left hip DJD and failed outpatient conservative treatments including NSAIDs, bracing, injections and home walking/exercise program. The patient's symptoms have progressed to the point where it has been difficult to perform even normal activities of daily living. I indicated the patient for a left total hip arthroplasty, the risks, benefits and complications of the procedure include but not limited to infection, bleeding, damage to bone, nerves, vessels, surrounding soft tissue, may develop blood clots, loss of function, leg length discrepancy, dislocation, failure of the components, loosening of the components, the need for additional surgery and . The patient wished to proceed with surgery at this time and informed consent was obtained. Hospital Course: On 06/13/2019 the patient was taken to the operating room, adequate anesthesia administered and underwent a left total hip arthroplasty. The patient tolerated the procedure well and was taken to the PACU in stable condition. Post- operatively the patient was started on a DVT ppx medication and given appropriate IV antibiotics. Consults were placed to physical therapy, occupational therapy and case management. On POD#1, the patient did well overnight and their pain was well controlled. Labs were drawn and the Hgb was 7.8. The patient did report an episode of feeling lightheaded upon standing and was transfused 2 units of packed red blood cells at this time. The patient progressed well with PT. Dressings were changed at this time and the incision was clean, dry and intact. On POD#2, labs were drawn and hemoglobin was 10.4. The patient's lightheadedness had resolved completely. They did well overnight and were without complaints or complications. They continue to progress well with physical therapy. The patients hospital stay was relatively uneventful and they were deemed stable by the orthopedic team and consultants to be discharged home with home health on 06/15/2019. Discharge Instructions: Upon discharge the patient may weight bear as tolerated through their operative extremity. They were instructed to keep the incision clean and dry at all times . The patient may shower but should not submerge the incision, avoid bathing, pools and hot tubes. The patient was given a script for pain medication and should take as instructed. The patient was given a script for DVT ppx 325 mg aspirin twice daily and should take as directed. The patient was instructed to not drive or travel for long distances until cleared to do so. If the patient develops any symptoms of fevers, chills, nausea, vomiting, increased redness, swelling, pain or drainage from the surgical site, they should notify the office and/or proceed to the nearest emergency room. The patient should follow up in 10-14 days after surgery for their routine post-operative follow-up appointment and should call the office to confirm the date and time. Status post left total hip arthroplasty POD#2 -Clinda x24 -DVT prophylaxis: SCDs, teds, ASA twice daily -Posterior hip precautions -PT/OT -Postoperative x-ray demonstrate a well aligned well fixed orthopedic prosthesis without evidence of fracture or dislocation. -A.m. lab - hgb 10.4, s/p 2 units PRBC on 06/14/19. -DC planning home with POD#1 -Clinda x24 -DVT prophylaxis: SCDs, teds, ASA twice daily -Posterior hip precautions -PT/OT -Postoperative x-ray demonstrate a well aligned well fixed orthopedic prosthesis without evidence of fracture or dislocation. -A.m. lab - hgb 7.8, acute post op anemia likely secondary to mario-operative acute blood loss and dilutional effect. Will transfuse 2 units PRBC. Monitor daily labs. -DC planning Total Time Total Time Spent Total Time Spent (In Minutes): 45 minutes Total Time Includes: Examination of the Patient, Discharge Planning, Medication Reconciliation and Communication With Other Providers Discharge Plan Discharge Items Patient Disposition: Home - Home Health Services Reason For Visit: Unilateral Primary Osteoarthritis, Left Hip Discharge Diagnosis: Left total hip replacement Condition on Discharge: Good Activity: Per Instructions section Lifting: Wait until after follow-up appointment Bathing: Keep incision dry Bathing Comment: No bathing, pools or hot tubs. Sexual Activity: Wait until after follow-up appointment Exercise/Sports: Wait until after follow-up appointment Driving/Machine Use: No driving Weightbearing: Full weightbearing Non-emergency contact: Primary Care Provider and Surgeon Call non-emergency contact if: you have any medication questions, your symptoms worsen, your pain is not controlled, your pain is worsening, your pain is unusual for you, your pain is concerning for you, you have a fever, your temperature is above 101, your wound has increased redness, your wound has increased drainage and your wound pain has increased Follow-up/Referrals: Jaguar Martin [Primary Care Provider] - Diet: Regular Addtl Attending Provider Instructions: ACTIVITY RECOMMENDATIONS: SELF CARE INSTRUCTIONS AFTER TOTAL HIP REPLACEMENT Until the incision and soft tissues around your hip have healed, there is a possibility that the hip prosthesis could dislocate. A. Observe the following precautions to prevent dislocation: 1. Don't bend your hip greater than 90 degrees. 2. Avoid crossing your legs or ankles while standing or lying. 3. Sit with your feet placed 6 inches apart. 4. When sitting, keep your knees below your hips. Sit on a firm surface, avoid deep, soft chairs and couches. Use an elevated toilet seat in the bathroom. 5. Don't bend over at the waist. Use a long handled shoehorn and a sock aid to help you put on your shoes and socks. A tumor registrar can help you pickling tank operator objects that are too high or too low to reach. 6. Keep car riding to a minimum for at least one month after surgery. B. Your balance may be shaky for a while. Use crutches or a walker until directed by your doctor. C. Use hand rails when walking on stairs. D. Wear low heeled shoes with non-slip soles. E. Be sure that your floors are free of things that could trip you - throw rugs, electrical cords, small objects. Avoid wet and waxed floors, especially with crutches and canes. F. Try to walk several times a day with rest periods between. G. Continue with all the exercises taught to you in the hospital. Again, make walking a part of your daily routine. SPECIAL CARE INSTRUCTIONS: VERY IMPORTANT TO READ AND REVIEW A. You may still be at risk for phlebitis and blood clots. 1. Wear surgical stockings (TAJ hose) for 2 weeks after surgery to improve circulation and reduce swelling. 2. Take Aspirin 325mg twice daily for 4 weeks or as directed by your doctor. This is your blood thinner. 3. High risk patients may be prescribed a stronger blood thinner if necessary. 4. If you are on Coumadin normally, your family doctor/career specialist should monitor your blood work. Expect a phone call the day of or the day after bloodwork is drawn to adjust your dosage. B. You must take antibiotics before having dental work, bladder, bowel and other surgery. Your doctor will provide you with a permanent card to carry describing precautions. C. Call [facility] if you have a fever, redness or swelling around the incision, cloudy drainage from incision, or sudden increase in pain in your hip, not relieved by your regular pain medication. D. Please call the office at if you have any concerns or questions about your operation or recovery. * YOU MAY SHOWER, NO TUB BATHS UNTIL CLEARED BY YOUR DOCTOR. * WEAR TAJ HOSE 20 HOURS PER DAY FOR 2 WEEKS. * YOU SHOULD USE A WALKER OR CRUTCHES FOR 2-4 WEEKS. THIS WILL HELP PREVENT STRAIN ON YOUR HIP MUSCLE AND ALLOW IT TO HEAL PROPERLY. YOU MAY WEAN TO A CANE TOLERATED. * MOST PATIENTS WILL HAVE HOME NURSING FOR THERAPY. IF YOU DECIDE TO DO OUTPATIENT PHYSICAL THERAPY, PLEASE SCHEDULE THIS 3 TIMES PER WEEK. *DERMABOND Prineo- This is a mesh tape dressing that is covered with glue. It should remain in place until the incision is properly healed, usually 10-14 days. This dressing is designed to naturally slough off. You may trim the excess mesh tape as it peels off. Incision may be briefly wet in a shower. Dry immediately by blotting with a clean, dry towel. Do not bath or swim until instructed by your doctor. Do not scratch, rub, or pick at the dressing. Do not apply any topical ointments or lotions until dressing is completely removed and/or instructed by your doctor. There may be a small piece of suture material at one end of your incision. Do not pull or trim this. If it is bothersome or catching on clothing, you may cover it with a band-aid. FOLLOW UP VISIT: If appointment is not already scheduled: Please call [facility] to make a follow-up appointment for 2 weeks after your surgery at . Pending Studies at Discharge: No Stand-Alone Forms: My [facility] [place], Smoking Cessation Medications and DC Order Prescriptions: New celecoxib [Celebrex] 200 mg Capsule 200 mg PO BID PRN (Reason: Pain/inflammation) Qty: 28 RF: 0 tramadol 50 mg Tablet 50 mg PO Q6H PRN (Reason: pain) Qty: 30 RF: 0 aspirin 325 mg Tablet,Delayed Release (Dr/Ec) 325 mg PO BID Qty: 56 RF: 0 acetaminophen [Tylenol Extra Strength] 500 mg Tablet 1,000 mg PO Q8H PRN (Reason: pain and/or fever) Qty: 90 RF: 0 Continued atorvastatin 20 mg Tablet 20 mg PO PM RF: 0 valacyclovir [Valtrex] 1 gram Tablet 1,000 mg PO Q12H PRN (Reason: Cold Sores) RF: 0 lamotrigine 25 mg Tablet 25 mg PO QPM RF: 0 cyanocobalamin (vitamin B-12) [Vitamin B-12] 500 mcg Tablet 500 mcg PO QAM RF: 0 montelukast 10 mg Tablet 10 mg PO PM RF: 0 magnesium 250 mg Tablet 250 mg PO QPM RF: 0 fluocinonide 0.05 % Solution 1 applic TOPICAL DAILY PRN (Reason: SKIN ISSUES) RF: 0 docusate sodium 100 mg Tablet 100 mg PO DAILY PRN (Reason: Constipation) RF: 0 cholecalciferol (vitamin D3) [Vitamin D3] 1,000 unit Capsule 1,000 - 2,000 unit PO QPM RF: 0 omeprazole 20 mg Tablet,Delayed Release (Dr/Ec) 20 mg PO QAM RF: 0 cholecalciferol (vitamin D3) [Vitamin D3] 5,000 unit Tablet 5,000 unit PO QAM RF: 0 calcium carb and citrate-vitD3 [Citracal + D Slow Release] 600 mg calcium- 500 unit Tablet Extended Release 1 tab PO QAM RF: 0 Cbd Oil 3 - 4 drp PO DAILY PRN (Reason: Pain) RF: 0 Dymista 137-50 mcg/spray [place],Non-Aerosol 1 spray INTRANASAL Q12H PRN (Reason: ALLERGIES) RF: 0 fluticasone propion-salmeterol [Advair Diskus] 100-50 mcg/dose Blister With Device 1 puff INHALATION BID RF: 0 famotidine 20 mg Tablet 20 mg PO HS RF: 0 Discontinued celecoxib 200 mg Capsule 200 mg PO QAM RF: 0 aspirin [Aspirin Low Dose] 81 mg Tablet,Delayed Release (Dr/Ec) 81 mg PO QPM RF: 0 Discharge Orders: Discharge Order (Routine); Ordered 06/15/19 Ordered By: Malick Peterson Admission Data Admit Date/Time: 06/13/19 11:26 Attending Provider: Malick Peterson Admit Provider: Malick Peterson Primary Care Provider: Jaguar Martin Other Interventions: Discharge Summary Assessment (RN) Last Done: 06/15/19 13:04 DC Date/Time DO NOT enter until pt leaves facility: 06/15/19 15:08
== END 2019-06-15 15:08 | disposition home health service (06) | DRG 470 ==
LOC: ASU 06:41 → 3E 11:26